=== PATIENT | female | born 1970 | race Caucasian/White ===

== ENCOUNTER → 2018-07-20 07:18 | Day surgery (SDC) | payer OTHER ==
[~2018-07-20 07:18] MED LIST: Acetaminophen TAB* 325 MG ONE; Acetaminophen TAB* 325 MG PO ONE; Buffered Lidocaine 1% SYRIN* 1 ML/SYRINGE INTRADERM ONE; Cisatracurium* 2 MG/ML MDV 5 ML ONE; Dexamethasone IV* 4 MG/ML 1 ML (4 MG) ONE; DiMENhydriNATE IV* 50 MG/ML VIAL IV PUSH PRN; Famotidine IV* 10 MG/ML 2 ML (20 mg) ONE; Gabapentin CAP(*) 300 MG ONE; Gabapentin CAP(*) 300 MG PO ONE; HYDROcodone/ACETAMIN 5-325 MG* 1 TAB ONE; HYDROcodone/ACETAMIN 5-325 MG* 1 TAB PO PRN; Lactated Ringers 1000 ML Bag* 1,000 ML IV SCH; Lidocaine 2% PF * 5 ML VIAL ONE; Midazolam* 1 MG/ML 2 ML VIAL (2 MG) ONE; Naloxone* 0.4 MG/ML 1 ML VIAL IV PRN; Ondansetron INJ* 2 MG/ML VIAL ONE; PROCHLORPERAZINE INJ 5 MG/ML 2 ML VIAL IV PRN; Propofol* 10 MG/ML 20 ML BTL ONE; Scopolamine 1.5 mg* PATCH TRANSDERM PRN; Scopolamine PATCH Remove* 1 NOTE MISC PATCH OFF ONE; Succinylcholine* 20 MG/ML 10 ML VIAL ONE; diPHENhydraMINE IV* 50 MG/ML 1 ml VIAL (BENADRYL) IV PRN; fentaNYL* 50 MCG/ML 2 ML VIAL (100 MCG VIAL) IV PRN; fentaNYL* 50 MCG/ML 2 ML VIAL (100 MCG VIAL) ONE
[2018-07-20 11:06] VITALS: BP 129/80
--- NOTE | 2018-07-20 11:55 | OP ---
OPERATIVE REPORT: DATE OF OPERATION: 07/20/18 - SDS DATE OF : 74 SURGEON: Eber Yan MD. [employer] NETWORK ENGINEER: None. ANESTHESIOLOGIST: Anthony Flannery MD. ANESTHESIA: General. PRE-OP DIAGNOSIS: Chronic tonsillitis. POST-OP DIAGNOSIS: Chronic tonsillitis. OPERATIVE PROCEDURE: Tonsillectomy. ESTIMATED BLOOD LOSS: Negligible. SPECIMENS: Right and left tonsils to Pathology. DESCRIPTION OF PROCEDURE: This is a 47-year-old woman who has had a longstanding history of chronic tonsillitis, who presents for elective tonsillectomy. The patient was brought to the operating room. General anesthesia was induced and an oral endotracheal tube was placed. The table was turned. A head wrap was applied and the patient was draped. Time-out was performed. A McIvor mouth gag was used to facilitate exposure to the oropharynx. It was suspended from the Cadet stand. The right tonsil was grasped with a straight Allis forceps, retracted medially and dissected free of its fossa with a coblation device at a setting of 7 and 3. There was minimal bleeding. The left tonsil was then grasped with a straight Allis forceps, retracted medially, and dissected free of its fossa with a coblation device at a setting of 7 and 3 again with minimal bleeding. Once the tonsils were removed , the superior and inferior pole regions were prophylactically cauterized using the bipolar function of the device at a setting of 5. The mouth gag was then let down for a period of a minute. It was opened again. The tonsillar fossa were reinspected. There was no evidence of active bleeding. An orogastric tube was passed in the stomach and the stomach contents were evacuated. The patient was then returned to the care of the anesthesiologist, extubated, and delivered to PACU in stable condition. [id number] #: [id number] MTDD
== END | disposition home or self-care (01) ==
LOC: OR 07:18
PROVIDERS: ATTEND Otolaryngology
DX: J35.01 Chronic tonsillitis (principal)
CPT/HCPCS: 81025; 88304; A9270-GY; J0330; J1100; J2250; J2405; J2704; J3010